=== PATIENT | female | born 1985 | race Asian ===

== ENCOUNTER 2021-04-07 22:03 | Inpatient (IN) | payer BC ==
[2021-04-07 22:35] VITALS: BMI 43.4
[2021-04-07] MEDS ORDERED: Azithromycin 1,000 MG in Sodium Chloride 0.9% 500 ML IVPB SCH (23:45)
[2021-04-07] MEDS ORDERED: Magnesium Sulfate 20 GM/WATER 500 ML BAG IVPB SCH (23:45)
[2021-04-07] MEDS ORDERED: hydrALAZINE 20 MG/ML VIAL SLOW IVP PRN (23:46)
[2021-04-07] MEDS ORDERED: Acetaminophen 500 MG TAB PO PRN (23:46)
[2021-04-07] MEDS ORDERED: Ondansetron PF 4 MG/2 ML Vial IVP PRN (23:46)
[2021-04-07] MEDS ORDERED: Calcium Gluc 4.6 MEQ/10 ML (100 MG/ML) SLOW IVP PRN (23:46)
[2021-04-07 23:55] LABS: Fetal Membranes Rupture RUPTURE DETECTED (No Rupture)
[2021-04-07] MEDS ORDERED: Magnesium Sulfate 20 gm/500 ml 20 GM/500 ML BAG ONE (23:58)
[2021-04-07] MEDS ORDERED: Betamet Acet/Betamet Na Ph 30 MG/5 ML VIAL ONE (23:58)
[2021-04-08] MEDS: Betamet Acet/Betamet Na Ph 30 MG/5 ML VIAL IM SCH (00:02)
[2021-04-08] MEDS: Magnesium Sulfate 20 gm/500 ml 20 GM/500 ML BAG IVPB SCH ×2 (00:04→16:55)
[2021-04-08] MEDS: Ampicillin 2 GM in Sodium Chloride 0.9% 100 ML IVPB SCH ×4 (00:30→19:59)
[2021-04-08 00:53] LABS: Hemoglobin 10.7 g/dL (12.0-15.5); Mean Corpuscular HGB CONC 33.5 g/dL (32.0-36.0); Mean Corpuscular Hemoglobin 26.2 pg (27.0-33.0); Mean Platelet Volume 10.1 fl (7.4-10.4); Platelet Count 361 10x3/uL (150-450); RBC Distribution Width 12.7 % (11.5-14.5); Red Blood Cell (RBC) Count 4.09 10x6/uL (3.90-5.03); White Blood Cell (WBC) Count 13.8 10x3/uL (3.5-10.5)
[2021-04-08] MEDS ORDERED: Magnesium 2 GM/50 ML 2 GM in Premix Bag 1 BAG IVPB SCH (01:15)
[2021-04-08] MEDS ORDERED: NIFEdipine 10 MG CAP PO SCH (01:15)
[2021-04-08 01:29] LABS: Hep B Surf Ag Non-Reactive S/CO (NonReactive)
[2021-04-08 01:29] LABS: Syphilis Antibody Nonreactive (Nonreactive); Syphilis Antibody Index 0.03 S/CO (<1.00 Non-Reactive)
[2021-04-08 01:37] LABS: HBSAg Index 0.22 S/CO (0-0.99)
[2021-04-08 02:46] LABS: SARS-CoV-2 NAA Rapid Test Not Detected (NotDetected)
[2021-04-08] MEDS: metFORMIN 500 MG TAB PO SCH ×2 (07:43→19:21)
[2021-04-08] MEDS: glyBURIDE 2.5 MG TAB PO SCH (07:44)
[2021-04-08] MEDS ORDERED: Dextrose 50% Abboject 50 ML SYRINGE SLOW IVP PRN (12:00)
[2021-04-08] MEDS ORDERED: Dextrose 5% in Water 1,000 ML IV PRN (12:00)
[2021-04-08] MEDS ORDERED: hydrALAZINE 20 MG/ML VIAL SLOW IVP PRN (13:13)
[2021-04-08] MEDS ORDERED: Ondansetron PF 4 MG/2 ML Vial IVP PRN (13:13)
[2021-04-08] MEDS ORDERED: Promethazine HCl 25 MG/ML VIAL IM PRN (13:13)
[2021-04-08] MEDS ORDERED: Zolpidem Tartrate 5 MG TAB PO PRN (13:16)
[2021-04-08] MEDS ORDERED: Famotidine 20 MG TAB PO PRN (13:16)
[2021-04-08] MEDS: Insulin Regular 300 UNITS/3 ML VIAL SC PRN ×2 (16:02→21:28)
[2021-04-09] MEDS: Betamet Acet/Betamet Na Ph 30 MG/5 ML VIAL IM SCH (01:16)
[2021-04-09] MEDS: Ampicillin 2 GM in Sodium Chloride 0.9% 100 ML IVPB SCH ×3 (02:17→15:26)
[2021-04-09] MEDS: Magnesium Sulfate 20 gm/500 ml 20 GM/500 ML BAG IVPB SCH ×2 (03:30→13:17)
[2021-04-09] MEDS: glyBURIDE 2.5 MG TAB PO SCH ×2 (09:03)
[2021-04-09] MEDS: Prenatal Vitamin 1 TAB PO SCH (09:05)
[2021-04-09] MEDS: Ferrous Sulfate 325 MG TAB PO SCH (09:05)
[2021-04-09] MEDS: metFORMIN 500 MG TAB PO SCH ×2 (09:05→16:58)
[2021-04-09] MEDS: Insulin Regular 300 UNITS/3 ML VIAL SC PRN ×2 (09:08→12:00)
[2021-04-10] MEDS: metFORMIN 500 MG TAB PO SCH ×2 (08:03→16:48)
[2021-04-10] MEDS: Ferrous Sulfate 325 MG TAB PO SCH (08:03)
[2021-04-10] MEDS: Prenatal Vitamin 1 TAB PO SCH (08:04)
[2021-04-10] MEDS: glyBURIDE 2.5 MG TAB PO SCH ×2 (08:04→16:49)
[2021-04-10] MEDS: AMOXicillin 250 MG CAP PO SCH ×2 (10:11→18:02)
[2021-04-10] MEDS ORDERED: Azithromycin 500 MG VIAL ONE (21:16)
[2021-04-10] MEDS ORDERED: Fentanyl 100 MCG/2 ML VIAL ONE ×2 (21:24→21:57)
[2021-04-10] MEDS ORDERED: Tranexamic Acid 1,000 MG/10 ML VIAL ONE ×3 (21:25→21:29)
[2021-04-10] MEDS ORDERED: Rocuronium Bromide 10 MG/ML (10ML VIAL) ONE (21:26)
[2021-04-10] MEDS ORDERED: Oxytocin 10 UNITS/ML VIAL ONE (21:28)
[2021-04-10] MEDS ORDERED: NS w/ Oxytocin 30 units 500 ML ONE (21:32)
[2021-04-10] MEDS ORDERED: Ketamine 50 MG/ML (10ML VIAL) ONE (21:34)
[2021-04-10] MEDS ORDERED: SUGAMMADEX SODIUM 200 MG/2 ML VIAL ONE (21:54)
[2021-04-10] MEDS ORDERED: Ketorolac Tromethamine 30 MG/ML VIAL IVP PRN (22:42)
[2021-04-10] MEDS ORDERED: Naloxone HCl 0.4 mg/ml Vial IV PRN ×2 (22:42→22:44)
[2021-04-10] MEDS ORDERED: Ondansetron PF 4 MG/2 ML Vial IVP PRN (22:42)
[2021-04-10] MEDS ORDERED: diphenhydrAMINE 50 MG/ML VIAL IM PRN (22:42)
[2021-04-10] MEDS ORDERED: Communication Order-Pharmacy FS PRN ×2 (22:45)
[2021-04-10] MEDS ORDERED: Ondansetron HCl/PF 4 MG/2 ML Vial IVP PRN (22:51)
[2021-04-10] MEDS ORDERED: Meperidine HCl/PF 25 MG/ML VIAL SLOW IVP PRN (22:51)
[2021-04-10] MEDS ORDERED: Fentanyl 100 MCG/2 ML VIAL SLOW IVP PRN (22:51)
[2021-04-10] MEDS ORDERED: CEFAZOLIN 2 GM in Premix Bag 1 BAG IVPB SCH (23:00)
[2021-04-10] MEDS ORDERED: Ketorolac Tromethamine 30 MG/ML VIAL IVP SCH (23:00)
[2021-04-10] MEDS ORDERED: Bisacodyl 10 MG SUPP PR PRN (23:07)
[2021-04-10] MEDS ORDERED: Zolpidem Tartrate 5 MG TAB PO PRN (23:07)
[2021-04-10] MEDS ORDERED: hydrALAZINE 20 MG/ML VIAL SLOW IVP PRN (23:07)
[2021-04-10] MEDS ORDERED: Simethicone Chewable 80 MG TAB PO PRN (23:07)
[2021-04-10] MEDS ORDERED: Promethazine HCl 25 MG/ML VIAL IM PRN (23:07)
[2021-04-10] MEDS ORDERED: diphenhydrAMINE 25 MG CAP PO PRN (23:07)
[2021-04-10] MEDS ORDERED: Boostrix 0.5 ML (Tdap) VIAL IM ONE (23:07)
[2021-04-10] MEDS ORDERED: Lanolin Ointment 7 GM TUBE TOP PRN (23:07)
[2021-04-10] MEDS ORDERED: HYDROcodone/Acetaminophen 5/325 mg Tablet PO PRN (23:07)
[2021-04-10] MEDS ORDERED: Acetaminophen 325 MG TAB PO PRN (23:07)
[2021-04-10] MEDS: fentaNYL Citrate/PF PCA SYRING 50 ML IV PRN (23:23)
[2021-04-11 04:47] LABS: Hemoglobin 9.3 g/dL (12.0-15.5); Mean Corpuscular HGB CONC 31.4 g/dL (32.0-36.0); Mean Corpuscular Hemoglobin 25.5 pg (27.0-33.0); Mean Corpuscular Volume 81.1 fl (81.6-98.3); Mean Platelet Volume 8.8 fl (7.4-10.4); Platelet Count 320 10x3/uL (150-450); RBC Distribution Width 12.6 % (11.5-14.5); Red Blood Cell (RBC) Count 3.65 10x6/uL (3.90-5.03); White Blood Cell (WBC) Count 15.2 10x3/uL (3.5-10.5)
[2021-04-11] MEDS: CEFAZOLIN 2 GM in Premix Bag 1 BAG IVPB SCH ×3 (05:30→20:43)
[2021-04-11] MEDS: AMOXicillin 250 MG CAP PO SCH (08:09)
[2021-04-11] MEDS: glyBURIDE 2.5 MG TAB PO SCH (08:09)
[2021-04-11] MEDS: Docusate Calcium (SURFAK) 240 MG CAP PO SCH ×2 (09:24→20:43)
[2021-04-11] MEDS: Ferrous Sulfate 325 MG TAB PO SCH ×2 (09:24→17:15)
[2021-04-11] MEDS: Prenatal Vitamin 1 TAB PO SCH (09:25)
[2021-04-11] MEDS: Ondansetron PF 4 MG/2 ML Vial IVP PRN ×2 (11:13→20:44)
[2021-04-11] MEDS: fentaNYL Citrate/PF PCA SYRING 50 ML IV PRN (11:23)
[2021-04-11] MEDS: Ampicillin 2 GM in Sodium Chloride 0.9% 100 ML IVPB SCH (20:26)
[2021-04-11] MEDS: HYDROcodone/Acetaminophen 5/325 mg Tablet PO PRN (20:46)
[2021-04-12] MEDS: CEFAZOLIN 2 GM in Premix Bag 1 BAG IVPB SCH (04:15)
[2021-04-12] MEDS: HYDROcodone/Acetaminophen 5/325 mg Tablet PO PRN ×3 (04:15→20:25)
[2021-04-12] MEDS: Ondansetron PF 4 MG/2 ML Vial IVP PRN (04:23)
[2021-04-12] MEDS: Ferrous Sulfate 325 MG TAB PO SCH ×3 (08:39→17:02)
[2021-04-12] MEDS: glyBURIDE 2.5 MG TAB PO SCH (08:53)
[2021-04-12] MEDS: Docusate Calcium (SURFAK) 240 MG CAP PO SCH ×2 (09:59→20:24)
[2021-04-12] MEDS: Prenatal Vitamin 1 TAB PO SCH (10:00)
[2021-04-12] MEDS: Ibuprofen 800 MG TAB PO SCH (20:24)
[2021-04-13] MEDS: HYDROcodone/Acetaminophen 5/325 mg Tablet PO PRN ×5 (04:09→21:42)
[2021-04-13] MEDS: Ibuprofen 800 MG TAB PO SCH ×3 (04:10→21:43)
[2021-04-13] MEDS: Prenatal Vitamin 1 TAB PO SCH (08:13)
[2021-04-13] MEDS: Ferrous Sulfate 325 MG TAB PO SCH ×2 (08:13→17:01)
[2021-04-13] MEDS: Docusate Calcium (SURFAK) 240 MG CAP PO SCH ×2 (10:20→21:42)
[2021-04-14] MEDS: Ibuprofen 800 MG TAB PO SCH (06:00)
[2021-04-14] MEDS: HYDROcodone/Acetaminophen 5/325 mg Tablet PO PRN (06:01)
[2021-04-14 07:45] VITALS: TEMP 98.5
[2021-04-14] MEDS: Prenatal Vitamin 1 TAB PO SCH (08:25)
[2021-04-14] MEDS: Docusate Calcium (SURFAK) 240 MG CAP PO SCH (08:25)
[2021-04-14] MEDS: Ferrous Sulfate 325 MG TAB PO SCH (08:25)
[2021-04-14 11:48] VITALS: BP 122/77
== END 2021-04-14 12:45 | disposition home or self-care (01) | DRG 786 ==
LOC: CSHLD 22:03 → CSHPP 04-11 03:40
PROVIDERS: ADMIT Student in an Organized Health Care Education/Training Program; ATTEND Student in an Organized Health Care Education/Training Program
PROC: 10D00Z1 Extraction of Products of Conception, Low, Open Approach (ICD-10-PCS; principal; 2021-04-10)
DX: O42.113 Preterm premature rupture of membranes, onset of labor more than 24 hours following rupture, third trimester (principal); O60.13X0 Preterm labor second trimester with preterm delivery third trimester, not applicable or unspecified; O69.0XX0 Labor and delivery complicated by prolapse of cord, not applicable or unspecified; O99.214 Obesity complicating childbirth; O24.429 Gestational diabetes mellitus in childbirth, unspecified control; Z20.822 Contact with and (suspected) exposure to COVID-19; Z3A.30 30 weeks gestation of pregnancy; Z37.0 Single live birth
CPT/HCPCS: 36415; 36416; 51702; 72170; 76815; 84112; 85027; 86780; 86850; 86900; 86901; 87081; 87340; 87480; 87510; 87660; 88307; 99285; J0290; J0456; J0690; J1815; J1885; J2405; J2590; J3010; J3475; J3490; J7030; U0002

== ENCOUNTER 2023-05-04 00:22 | Observation (INO) | payer BC ==
[2023-05-04 01:34] LABS: Bilirubin Neg (Negative); Blood, Urine Negative (Negative); Glucose, Urine (Dipstick) Normal (Negative); Ketone, Urine 150 mg/dL (Negative); Leukocyte Negative (Negative); Nitrite Negative (Negative); Protein, Urine (Dipstick) 100 mg/dl (Neg-Trace); Specific Gravity, Urine 1.025 (1.005-1.030); Urobilinogen Normal mg/dL (Less than 2)
[2023-05-04 01:37] LABS: Clarity Slightly Cloudy (Clear)
[2023-05-04 01:41] LABS: Bacteria/HPF 1+ HPF (None Seen); CAUTI Indications for Culture Pregnancy; Mucous/LPF 1+ LPF (<2+); RBC/HPF 0-3 HPF (0-3); WBC/HPF 0-3 HPF (0-3)
[2023-05-04 01:42] LABS: Urine Culture Reflex Yes Yes
[2023-05-04 01:52] LABS: #Eosinphils 0.1 10x3/uL (0.0-0.5); #Monocytes 0.5 10x3/uL (0.0-1.1); #Neutrophils 6.8 10x3/uL (1.5-8.4); %Basophils 0.2 % (0.0-2.0); %Eosinophils 0.8 % (0.0-6.0); %Lymphocytes 26.2 % (18.0-47.0); %Monocytes 4.6 % (0.0-10.0); %Neutrophils 67.9 % (40.0-75.0); Hematocrit 34.8 % (34.9-44.5); Hemoglobin 11.4 g/dL (12.0-15.5); Mean Corpuscular HGB CONC 32.8 g/dL (32.0-36.0); Mean Corpuscular Hemoglobin 25.6 pg (27.0-33.0); Mean Corpuscular Volume 78.2 fl (81.6-98.3); Mean Platelet Volume 9.2 fl (7.4-10.4); Platelet Count 305 10x3/uL (150-450); RBC Distribution Width 13.2 % (11.5-14.5); Red Blood Cell (RBC) Count 4.45 10x6/uL (3.90-5.03)
[2023-05-04 02:01] LABS: INR-International Normal Ratio 0.9; PTT 26.2 sec (22.0-33.0); Prothrombin Time 10.1 sec (9.5-12.1)
[2023-05-04 02:06] LABS: ALT (SGPT) 15 U/L (8-55); AST (SGOT) 15 U/L (5-34); Albumin 3.6 g/dL (3.5-5.0); Alkaline Phosphatase 49 U/L (40-110); Anion Gap 16 mmol/L (10-20); BUN (Urea Nitrogen) 10 mg/dL (7.0-18.7); Bilirubin, Total 0.5 mg/dL (0.2-1.2); Calc. Creatinine Clearance 0 mL/min (70-130); Calcium 9.3 mg/dL (7.8-10.44); Carbon Dioxide 19 mmol/L (22-29); Chloride 105 mmol/L (98-107); Estimated GFR 118; Globulin 3.3 g/dL (2.4-3.5); Glucose 103 mg/dL (70-105); Potassium 4.2 mmol/L (3.5-5.1); Protein, Total 6.9 g/dL (6.0-8.3); Sodium 136 mmol/L (136-145)
[2023-05-04 03:08] VITALS: BMI 48.2
[2023-05-04] MEDS ORDERED: Ondansetron PF 4 MG/2 ML Vial ONE (03:51)
[2023-05-04] MEDS ORDERED: Acetaminophen 325 MG TAB PO PRN (03:52)
[2023-05-04] MEDS ORDERED: Ondansetron PF 4 MG/2 ML Vial IVP SCH (04:00)
[2023-05-04] MEDS ORDERED: Lactated Ringer's 1,000 ML IV SCH (04:00)
[2023-05-04] MEDS ORDERED: Ondansetron PF 4 MG/2 ML Vial IVP PRN (04:32)
[2023-05-04] MEDS ORDERED: Dextrose 50% Abboject 50 ML SYRINGE SLOW IVP PRN (04:35)
[2023-05-04] MEDS ORDERED: Glucagon 1 MG/ML KIT IM PRN (04:35)
[2023-05-04] MEDS ORDERED: Dextrose 5% in Water 1,000 ML IV PRN (04:35)
[2023-05-04] MEDS ORDERED: Famotidine/PF 20 mg/2ml Vial SLOW IVP SCH (04:45)
[2023-05-04 15:27] LABS: Uric Acid 5.6 mg/dL (2.6-6.0)
== END 2023-05-04 10:43 | disposition home health service (06) ==
LOC: CSHERS 00:22 → CSHLD/OP 02:56 → CSHLD 03:07
PROVIDERS: ADMIT Obstetrics & Gynecology; ATTEND Obstetrics & Gynecology
DX: O09.522 Supervision of elderly multigravida, second trimester (principal); O99.891 Other specified diseases and conditions complicating pregnancy; R03.0 Elevated blood-pressure reading, without diagnosis of hypertension; O21.2 Late vomiting of pregnancy; O24.419 Gestational diabetes mellitus in pregnancy, unspecified control; O99.282 Endocrine, nutritional and metabolic diseases complicating pregnancy, second trimester; E03.9 Hypothyroidism, unspecified; E86.0 Dehydration; O99.212 Obesity complicating pregnancy, second trimester; E66.01 Morbid (severe) obesity due to excess calories; O34.32 Maternal care for cervical incompetence, second trimester; Z79.84 Long term (current) use of oral hypoglycemic drugs; Z98.890 Other specified postprocedural states; Z79.82 Long term (current) use of aspirin; Z79.899 Other long term (current) drug therapy; Z3A.26 26 weeks gestation of pregnancy
CPT/HCPCS: 76819; 80053; 81001; 82570; 84156; 84550; 85025; 85610; 85730; 87086; 99283

== ENCOUNTER 2023-07-18 12:00 | Inpatient (IN) | payer BC ==
[2023-07-19 10:58] LABS: Hematocrit 33.7 % (34.9-44.5); Platelet Count 293 10x3/uL (150-450)
[2023-07-19 11:35] LABS: Syphilis Antibody Nonreactive (Nonreactive); Syphilis Antibody Index 0.03 S/CO (<1.00 Non-Reactive)
[2023-07-19 11:36] LABS: HBSAg Index 0.31 S/CO (0-0.99); Hep B Surf Ag Non-Reactive S/CO (NonReactive)
[2023-07-20] MEDS ORDERED: Bicitra 30 ML UDCUP PO PRN (09:34)
[2023-07-20] MEDS ORDERED: hydrALAZINE 20 MG/ML VIAL SLOW IVP PRN ×2 (09:34→15:28)
[2023-07-20] MEDS ORDERED: Ondansetron PF 4 MG/2 ML Vial IVP PRN ×3 (09:34→11:09)
[2023-07-20] MEDS ORDERED: Promethazine HCl 25 MG/ML VIAL IM PRN ×2 (09:34→11:09)
[2023-07-20] MEDS ORDERED: Diphenoxylate HCl/Atropine Tablet PO PRN (09:43)
[2023-07-20] MEDS ORDERED: Misoprostol 200 MCG TAB PR PRN (09:43)
[2023-07-20] MEDS ORDERED: fentaNYL 50 mcg/mL 1 mL Vial SLOW IVP PRN ×2 (09:43→11:09)
[2023-07-20] MEDS ORDERED: Methylergonovine 0.2 MG/ML VIAL IM PRN (09:43)
[2023-07-20] MEDS ORDERED: Carboprost 250 MCG/ML AMP IM PRN (09:43)
[2023-07-20] MEDS ORDERED: Acetaminophen 500 MG TAB PO PRN (09:43)
[2023-07-20] MEDS ORDERED: Lactated Ringer's 1,000 ML IV SCH (09:45)
[2023-07-20] MEDS ORDERED: Oxytocin 30 units/NS 500 ML 500 ML IV SCH (09:45)
[2023-07-20] MEDS ORDERED: Meperidine HCl/PF 25 MG (1 mL) VIAL SLOW IVP PRN (11:09)
[2023-07-20] MEDS ORDERED: Promethazine HCl 25 MG SUPP PR PRN (11:09)
[2023-07-20] MEDS ORDERED: Ketorolac Tromethamine 30 MG (1 mL) VIAL IVP PRN (11:09)
[2023-07-20] MEDS ORDERED: Moisturizing Cream (Eucerin) 113 GM JAR TOP PRN (11:09)
[2023-07-20] MEDS ORDERED: diphenhydrAMINE 50 MG/ML VIAL IVP PRN (11:09)
[2023-07-20] MEDS ORDERED: Naloxone HCl 0.4 mg/ml Vial IV PRN (11:09)
[2023-07-20] MEDS ORDERED: Naloxone HCl 0.4 mg/ml Vial IVP PRN ×2 (11:09)
[2023-07-20] MEDS ORDERED: HYDROmorphone 0.5 MG/0.5 ML SYRINGE SLOW IVP PRN (11:09)
[2023-07-20] MEDS ORDERED: Communication Order-Pharmacy FS SCH (11:15)
[2023-07-20] MEDS ORDERED: Ketorolac Tromethamine 30 MG (1 mL) VIAL IVP SCH (11:15)
[2023-07-20] MEDS: CEFAZOLIN 2 GM in Sodium Chloride 0.9% 100 ML IVPB SCH (11:45)
[2023-07-20] MEDS: Ondansetron PF 4 MG/2 ML Vial ONE (11:46)
[2023-07-20] MEDS: Famotidine/PF 20 mg/2ml Vial SLOW IVP PRN (11:46)
[2023-07-20 12:23] LABS: ALT (SGPT) 13 U/L (8-55); AST (SGOT) 12 U/L (5-34); Albumin 3.4 g/dL (3.5-5.0); Alkaline Phosphatase 113 U/L (40-110); Anion Gap 16 mmol/L (10-20); BUN (Urea Nitrogen) 9 mg/dL (7.0-18.7); Bilirubin, Total 0.5 mg/dL (0.2-1.2); Calc. Creatinine Clearance 0 mL/min (70-130); Calcium 8.8 mg/dL (7.8-10.44); Carbon Dioxide 18 mmol/L (22-29); Chloride 107 mmol/L (98-107); Estimated GFR 118; Globulin 2.6 g/dL (2.4-3.5); Glucose 85 mg/dL (70-105); Potassium 4.5 mmol/L (3.5-5.1); Sodium 136 mmol/L (136-145)
[2023-07-20] MEDS ORDERED: diphenhydrAMINE 25 MG CAP PO PRN (15:28)
[2023-07-20] MEDS ORDERED: Bisacodyl 10 MG SUPP PR PRN (15:28)
[2023-07-20] MEDS ORDERED: Lanolin Ointment 7 GM TUBE TOP PRN (15:28)
[2023-07-20] MEDS ORDERED: Zolpidem Tartrate 5 MG TAB PO PRN (15:28)
[2023-07-20] MEDS: fentaNYL 50 mcg/mL 1 mL Vial ONE (15:30)
[2023-07-20] MEDS: Morphine PF 10 MG/10 ML VIAL ONE (15:30)
[2023-07-20] MEDS: Phytonadione Neonatal 1 MG/0.5 ML AMP ONE (15:31)
[2023-07-20] MEDS: Phenylephrine 10 MG/ML VIAL ONE (15:31)
[2023-07-20] MEDS: Erythromycin Base 0.5% Oint 1 GM TUBE ONE (15:31)
[2023-07-20] MEDS: Dexamethasone 4 mg/ml Vial ONE (15:31)
[2023-07-20] MEDS: Oxytocin 10 UNITS/ML VIAL ONE (15:31)
[2023-07-20] MEDS: CEFAZOLIN 1 GM VIAL ONE (15:31)
[2023-07-20] MEDS: Tranexamic Acid 1,000 MG/10 ML VIAL ONE (15:32)
[2023-07-20] MEDS: Ondansetron PF 4 MG/2 ML Vial IVP PRN (17:16)
[2023-07-20] MEDS: Promethazine HCl 25 MG/ML VIAL IM PRN (20:00)
[2023-07-20] MEDS: Docusate 100 MG CAP PO SCH (21:27)
[2023-07-20] MEDS: Ferrous Sulfate 325 MG TAB PO SCH (21:27)
[2023-07-20] MEDS ORDERED: HYDROcodone/Acetaminophen 5/325 mg Tablet PO PRN (23:15)
[2023-07-21 05:02] LABS: Hematocrit 28.6 % (34.9-44.5); Hemoglobin 9.4 g/dL (12.0-15.5); Mean Corpuscular HGB CONC 32.9 g/dL (32.0-36.0); Mean Platelet Volume 10.3 fl (7.4-10.4); Platelet Count 254 10x3/uL (150-450); RBC Distribution Width 13.1 % (11.5-14.5); Red Blood Cell (RBC) Count 3.62 10x6/uL (3.90-5.03); White Blood Cell (WBC) Count 10.5 10x3/uL (3.5-10.5)
[2023-07-21] MEDS: Prenatal Vitamin 1 TAB PO SCH (08:12)
[2023-07-21] MEDS: HYDROcodone/Acetaminophen 5/325 mg Tablet PO PRN (08:13)
[2023-07-21] MEDS: Simethicone Chewable 80 MG TAB PO PRN (08:37)
[2023-07-21] MEDS: Ibuprofen 800 MG TAB PO SCH (15:49)
[2023-07-21] MEDS: Polyethylene Glycol 3350 17 GM Packet PO PRN (21:37)
[2023-07-21] MEDS: Acetaminophen 325 MG TAB PO PRN (21:39)
[2023-07-22] MEDS: Boostrix 0.5 ML (Tdap) VIAL (>/=7 yrs of age) IM ONE (08:47)
[2023-07-22 11:12] VITALS: BP 139/73; TEMP 98.2
== END 2023-07-22 11:45 | disposition home or self-care (01) | DRG 785 ==
LOC: CSHLD 07-20 10:02 → CSHPP 07-20 15:24
PROVIDERS: ADMIT Student in an Organized Health Care Education/Training Program; ATTEND Student in an Organized Health Care Education/Training Program
PROC: 10D00Z1 Extraction of Products of Conception, Low, Open Approach (ICD-10-PCS; principal; 2023-07-20)
PROC: 0UB70ZZ Excision of Bilateral Fallopian Tubes, Open Approach (ICD-10-PCS; 2023-07-20)
PROC: 0UCC0ZZ Extirpation of Matter from Cervix, Open Approach (ICD-10-PCS; 2023-07-20)
PROC: 0UB90ZZ Excision of Uterus, Open Approach (ICD-10-PCS; 2023-07-20)
DX: O34.211 Maternal care for low transverse scar from previous cesarean delivery (principal); Z3A.37 37 weeks gestation of pregnancy; Z37.0 Single live birth; E03.9 Hypothyroidism, unspecified; Z79.890 Hormone replacement therapy; O99.284 Endocrine, nutritional and metabolic diseases complicating childbirth; O24.425 Gestational diabetes mellitus in childbirth, controlled by oral hypoglycemic drugs; Z30.2 Encounter for sterilization; Z79.84 Long term (current) use of oral hypoglycemic drugs; E66.9 Obesity, unspecified; O99.214 Obesity complicating childbirth; D25.0 Submucous leiomyoma of uterus; O90.81 Anemia of the puerperium; D50.0 Iron deficiency anemia secondary to blood loss (chronic); N88.8 Other specified noninflammatory disorders of cervix uteri; O99.892 Other specified diseases and conditions complicating childbirth
CPT/HCPCS: 51702; 80053; 85014; 85018; 85027; 85049; 86780; 86850; 86900; 86901; 87340; 88302; 88305; J1100; J2274; J2371; J2405; J2550; J2590; J3010; J3490; S0028